=== PATIENT | female | born 1955 | race Caucasian/White ===

== ENCOUNTER 2017-02-14 08:27 | Day surgery (SDC) | payer BC ==
[~2017-02-14 08:27] MED LIST: Lactated Ringers 1,000 ML IV SCH
[2017-02-14] MEDS ORDERED: Propofol 200 MG/20 ML SDV ONE ×2 (09:56→10:59)
[2017-02-14] MEDS ORDERED: fentaNYL 100 MCG/2 ML SDV ONE (10:28)
[2017-02-14 12:19] VITALS: BP 137/73
--- NOTE | 2017-02-14 14:19 | OR ---
DATE OF SURGERY: 02/14/2017. REFERRING PROVIDER: Gwendolyn Faria MD. PRE-OPERATIVE DIAGNOSES: Positive Fit test. This is the patient's first colonoscopy. There is no known family history of colon cancer and colon polyps. Although there is a son with ulcerative colitis. POST-OPERATIVE DIAGNOSES: 1. Five small polyps removed all using cold forceps. a. 4 mm polyp at 45 cm. b. 3 mm and 2 mm polyps at 18 cm. c. 2 mm x2 rectal polyps. 2. Mild internal and external hemorrhoids, not acutely inflamed. 3. Normal distal ilium. PROCEDURE: Colonoscopy with polypectomy x5 using cold forceps. SURGEON: Ming Castaneda M.D. ANESTHESIA: Monitored anesthesia care. BOWEL PREP: Good. DESCRIPTION OF OPERATION: Ara is a 61-year-old female. The patient was brought to the endoscopy suite after discussing risks and benefits of the procedure. Informed consent was obtained for conscious sedation and colonoscopy with or without biopsy and/or polypectomy. We also discussed possibility of missed lesions. Pre-procedure exam was unremarkable. IV, oxygen, and monitors were placed. The patient was placed in the left lateral decubitus position. Sedation was administered and a digital rectal exam performed and was remarkable for some mild external hemorrhoids, not acutely inflamed. Colonoscope was passed into the rectum and slowly advanced all the way to the cecum. Cecum was viewed and photographed. Ileocecal valve was intubated and distal ileum was normal in appearance. The colonoscope was slowly withdrawn and the mucosa was closed observed in a direct circumferential manner. Ascending colon, unremarkable. Transverse colon, unremarkable. The descending colon did reveal a 4-mm polyp at 45 cm, removed with cold forceps using several bites. The sigmoid colon did reveal a 3 mm and 2 mm polyps at 18 cm, both removed with cold forceps. Retroflexion was performed. Rectal mucosa was remarkable for a couple of tiny small polyps, 2 mm x 2 were removed using cold forceps. Some mild bleeding was noted, which had ceased by the time the scope was removed. There were also some mild internal hemorrhoids noted, not acutely inflamed. Scope was removed. The patient tolerated the procedure well. The patient was monitored until that baseline status. Discharge instructions were reviewed and the patient was discharged in good condition. COMPLICATIONS: None. TOTAL TIME: 23 minutes. ESTIMATED BLOOD LOSS: 1 mL to 2 mL. RECOMMENDATIONS/FOLLOWUP: We will await results of Path report to determine ideal followup interval. I would like to kindly thank Dr. Gwendolyn Faria for this referral. DMB: 02/14/2017 12:04:42 MODL: 02/14/2017 13:58:39 /[id number]
== END 2017-02-14 12:10 | disposition home or self-care (01) ==
LOC: VM.SDS 08:27
PROVIDERS: ATTEND Family Medicine
DX: D12.6 Benign neoplasm of colon, unspecified (principal); K63.5 Polyp of colon; K64.4 Residual hemorrhoidal skin tags; K64.8 Other hemorrhoids; I10 Essential (primary) hypertension; E78.5 Hyperlipidemia, unspecified; E66.01 Morbid (severe) obesity due to excess calories; Z79.899 Other long term (current) drug therapy; Z88.8 Allergy status to other drugs, medicaments and biological substances; Z98.890 Other specified postprocedural states; Z90.710 Acquired absence of both cervix and uterus; Z87.891 Personal history of nicotine dependence
CPT/HCPCS: 45380; J2704; J3010; J7120

== ENCOUNTER 2022-05-11 06:45 | Day surgery (SDC) | payer MEDICARE, BC ==
[2022-05-11] MEDS ORDERED: Lactated Ringers 1,000 ML IV SCH ×2 (07:00→07:30)
[2022-05-11] MEDS ORDERED: fentaNYL 100 MCG/2 ML SDV ONE (08:41)
[2022-05-11] MEDS ORDERED: Propofol 200 MG/20 ML SDV ONE ×3 (08:41→09:43)
[2022-05-11 09:58] VITALS: BP 148/80; PULSE 81
== END 2022-05-11 10:25 | disposition home or self-care (01) ==
LOC: VM.SDS 06:45
PROVIDERS: ATTEND Student in an Organized Health Care Education/Training Program
DX: Z12.11 Encounter for screening for malignant neoplasm of colon (principal); E78.00 Pure hypercholesterolemia, unspecified; M10.9 Gout, unspecified; E66.9 Obesity, unspecified; I12.9 Hypertensive chronic kidney disease with stage 1 through stage 4 chronic kidney disease, or unspecified chronic kidney disease; N18.32 Chronic kidney disease, stage 3b; A52.16 Charcot's arthropathy (tabetic); E11.22 Type 2 diabetes mellitus with diabetic chronic kidney disease; Z88.8 Allergy status to other drugs, medicaments and biological substances; Z68.42 Body mass index [BMI] 45.0-49.9, adult; Z86.010 Personal history of colon polyps; Z98.890 Other specified postprocedural states; Z79.899 Other long term (current) drug therapy; Z79.84 Long term (current) use of oral hypoglycemic drugs; Z87.891 Personal history of nicotine dependence
CPT/HCPCS: 00812; 82947; J2704; J3010; J7120